=== PATIENT | male | born 1995 | race Caucasian/White ===

== ENCOUNTER 2017-09-24 22:38 | Emergency (ER) | payer BC ==
[2017-09-24 22:44] VITALS: RESP 18; TEMP 98.4
--- NOTE | 2017-09-24 22:53 | EDPHY ---
H & P Stated Complaint: says playing hockey, [place] with [place] - [place] Time Seen by Provider: 09/24/17 22:52 HPI/ROS: HPI: This is a 21-year-old male presents with Chief Complaint: says playing hockey, [place] with [place] - [place] Location: Right posterior ankle Quality: Injury Duration: Prior to arrival Signs and Symptoms: + bleeding, no radiation, no numbness, no weakness, no tingling, no incontinence, no decreased range of motion, + swelling, + pain Timing: Acute Severity: Moderate to severe Context: Patient who plays hockey for [employer] reports that he was hit in the right posterior ankle with his opponents skate approximately 45 min prior to arrival. A laceration was noted by the head athletic trainer who applied butterfly bandages. There was concerned that he may have injured his Achilles tendon. He is able to bear weight but has significant pain. Denies any paresthesias/ decreased range of motion/skin color changes. Tetanus is up-to-date. No LOC/ head injury/neck pain/dizziness/vomiting. Patient reports that the pain is constant, moderate in nature, nonradiating. Modifying Factors: Direct pressure, bandage Comment: ROS: see HPI Constitutional: No fever, no chills, no weight loss Eyes: No blurred vision Respiratory: No shortness of breath, no cough Cardiovascular: No chest pain Gastrointestinal: No nausea, no vomiting no diarrhea Genitourinary: No dysuria Extremities: No myalgias Neurologic: No weakness, no numbness Skin: No rashes Hematologic: No bruising, no bleeding MEDICAL/SURGICAL/SOCIAL HISTORY: Medical history: Generally healthy. Does not take any regular medications. Surgical history: Denies Social history: student CONSTITUTIONAL: Well-developed well-nourished young adult white male, awake and alert, no obvious distress HEENT: Atraumatic and normocephalic, PERRL, EOMI. Tympanic membranes clear. Oropharynx clear, no exudate and moist pink mucosa. Airway patent. No lymphadenopathy. No meningismus. Cardiovascular: Normal S1/S2, regular rate, regular rhythm, without murmur rub or gallop. PULMONARY/CHEST: Symmetrical and nontender. Clear to auscultation bilaterally. Good air movement. No accessory muscle usage. ABDOMEN: Soft, nondistended, nontender, no rebound, no guarding, no peritoneal signs, no masses or organomegaly. No CVAT. EXTREMITIES: 2/2 DP and PT pulses, strength 5/5, right Ankle: Plantar flexion to 30, dorsiflexion to 10. Foot inversion to 25 degree. No tenderness/ swelling Anterior talofibular ligament. No tenderness/swelling Calcaneofibular ligament, no tenderness/swelling posterior talofibular ligament, no tenderness/ swelling posterior inferior tibiofibular ligament. Mehta test equivocal. 1.5 cm C-shaped superficial laceration and 2.5 cm C-shaped laceration noted at the posterior ankle. no deformities, no clubbing, no cyanosis or edema. NEUROLOGICAL: no focal neuro deficits. GCS 15. SKIN: Warm and dry, no erythema. no rash. Good capillary refill. Source: Patient, Family (Father) Exam Limitations: No limitations - Medical/Surgical History Hx Asthma: No Hx Chronic Respiratory Disease: No Hx Diabetes: No Hx Cardiac Disease: No Hx Renal Disease: No Hx Cirrhosis: No Hx Alcoholism: No Hx HIV/AIDS: No Hx Splenectomy or Spleen Trauma: No Other PMH: denies - Social History Smoking Status: Never smoked Constitutional: Initial Vital Signs Temperature (C) 36.9 C 09/24/17 22:42 Heart Rate 74 09/24/17 22:42 Respiratory Rate 18 09/24/17 22:42 Blood Pressure 150/88 H 09/24/17 22:42 O2 Sat (%) 94 09/24/17 22:42 O2 Delivery Mode Room Air Allergies/Adverse Reactions: No Known Allergies Allergy (Verified 09/24/17 22:45) Home Medications: Medication Instructions Recorded oxyCODONE/APAP 5/325 [Percocet 1 - 2 tab PO Q4H PRN #12 tab 09/25/17 5/325 (*)] Medical Decision Making - Diagnostics Imaging Results: Imaging Impressions Extremity CT 09/24/17 22:58 Impression: Subtotal Achilles tendon tear. Results discussed with Karime Cary at midnight. Procedures: Procedure: Laceration repair. Verbal consent was obtained from the patient. The 1.5 cm C-shaped, simple, superficial laceration at the posterior ankle laceration was anesthetized in the usual fashion 2 mls of 1% lidocaine. The wound was irrigated, draped and explored to its base with a gloved finger. There were no deep structures involved. No tendon injury was identified. The wound was repaired with #5, 5 0 Prolene, in simple interrupted pattern. Good hemostasis was achieved. The procedure was performed by myself. Procedure: Laceration repair. Verbal consent was obtained from the patient. The 2.5 cm C-shaped, complex, laceration noted laceration on the right posterior ankle was anesthetized in the usual fashion 3 mL of 1% lidocaine. The wound was irrigated, draped and explored to its base with a gloved finger. There were no deep structures involved. No tendon injury was identified. The wound was repaired with #7, 5 0 Prolene simple interrupted pattern. Hemostasis was achieved.The procedure was performed by myself. Procedure: Splint placement. A right posterior leg splint was applied by the emergency room hvac service technician. After application of the splint I returned and re-examined the patient. The splint was adequately immobilizing the joint and distal to the splint the patient's circulation and sensation was intact. ED Course/Re-evaluation: Wound care and laceration repair Tetanus up-to-date Percocet given with adequate pain relief Father and patient are very concerned regarding his Achilles tendon. Equivocal Mehta test. Due to patient and father's insistence, CT ankle ordered albeit not the best test but it is midnight in the ER. Called by radiologist who advised tear ach[place] tendon. No signs of neurovascular compromise/tenting of skin/compartment syndrome/ extremities and joints examined above and below area of concern and are neurovascularly intact. posterior leg splint, crutches, NWB This patient was seen under the supervision of my secondary supervising physician. I evaluated care for this patient independently. Discussed this patient with Dr. Eubanks who did not see the patient. Differential Diagnosis: Differential diagnosis includes but is not limited to Achilles sprain, Achilles rupture, laceration, nerve injury, ligament injury, ankle fracture. - Data Points Medications Given: Discontinued Medications Oxycodone/Acetaminophen (Percocet 5/325) 2 tab PO EDNOW ONE Stop: 09/24/17 23:00 Last Admin: 09/24/17 23:11 Dose: 2 tab Oxycodone/Acetaminophen (Percocet 5/325mg Prepack#4) 1 btl TAKEHOME EDNOW ONE Stop: 09/25/17 00:20 Last Admin: 09/25/17 01:08 Dose: 1 btl Departure - Departure Disposition: Home, Routine, Self-Care Clinical Impression: Partial tear of right Achilles tendon Qualifiers: Encounter type: initial encounter Qualified Code(s): S86.011A - Strain of right Achilles tendon, initial encounter Condition: Good Instructions: Achilles Tendon Rupture (ED), Achilles Tendon Repair (DC) Additional Instructions: Keep the splint dry and in place until seen by Orthopedics for follow-up. Use crutches to aid ambulation. Nonweightbearing status on right lower extremity. Take Tylenol 650 mg every 4 hours and/or Ibuprofen 600 mg every 8 hours with food as needed for pain. Use Percocet every 6 hours as needed for severe/breakthrough pain. Do not use Tylenol and Percocet concominantly. Apply ice for 30 minutes at a time; 2-3 times per day for the next 1-2 days. Please return to the emergency room to have your sutures removed in 7-10 days. Follow up with Orthopedics in 2-3 days at which time they will evaluate and recommend with you if conservative management versus surgery is indicated. . Referrals: Woodrow Olea MD [Medical Doctor] - 2-3 days, call for appt. Prescriptions: oxyCODONE/APAP 5/325 [Percocet 5/325 (*)] 1 - 2 tab PO Q4H PRN #12 tab PRN Reason: Pain, Severe
[2017-09-24] MEDS ORDERED: OXYCODONE/APAP 5/325 TAB PO ONE (22:59)
[2017-09-25] MEDS ORDERED: OXYCODONE/APAP 5/325MG PREPACK#4 BTL TAKEHOME ONE (00:19)
[2017-09-25 01:33] VITALS: BP 145/88; PULSE 75; O2SAT 96
== END 2017-09-25 01:33 | disposition home or self-care (01) ==
PROC: 0HQKXZZ Repair Right Lower Leg Skin, External Approach (ICD-10-PCS; principal; 2017-09-24)
DX: S91.011A Laceration without foreign body, right ankle, initial encounter (principal); S86.011A Strain of right Achilles tendon, initial encounter; W21.220A Struck by ice hockey puck, initial encounter; Y92.89 Other specified places as the place of occurrence of the external cause; Y99.8 Other external cause status; Y93.22 Activity, ice hockey